=== PATIENT | female | born 1990 | race Caucasian/White ===

== ENCOUNTER 2017-07-10 08:56 | Emergency (ER) | payer OTHER ==
[~2017-07-10] VITALS: Ht 167.6 cm; Wt 110.1 kg
[~2017-07-10 08:56] MED LIST: HYDR4TAB48 PO; ONDA4TAB13 SL; none per pt
[2017-07-10] MEDS ORDERED: MORPHINE SULFATE 4 MG/ML, 1ML ONE ×2 (09:25→10:14)
[2017-07-10] MEDS ORDERED: ONDANSETRON ODT 4 MG ONE (09:25)
[2017-07-10] MEDS ORDERED: ONDANSETRON ODT 4 MG PO ONE (09:30)
[2017-07-10] MEDS ORDERED: SODIUM CHLORIDE FLUSH 10ML SYR IVF ONE (09:30)
[2017-07-10] MEDS: MORPHINE SULFATE 4 MG/ML, 1ML IVPush PRN ×2 (09:40→10:18)
[2017-07-10 10:10] LABS: CULTURE INDICATED? YES; MICROSCOPIC INDICATED
[2017-07-10 10:12] LABS: BASOPHILS # (AUTO) 0.05 x10^3/uL (0-0.1); BASOPHILS % (AUTO) 1 % (0-1); EOSINOPHILS # (AUTO) 0.06 x10^3/uL (0-0.4); EOSINOPHILS % (AUTO) 1 % (1-7); LYMPHOCYTES # (AUTO) 2.34 x10^3/uL (1-3.4); LYMPHOCYTES % (AUTO) 31 % (22-44); MD NO; MEAN CORPUSCULAR HEMOGLOBIN 29.6 pg (27.0-34.8); MEAN CORPUSCULAR HGB CONC 33.5 g/dL (32.4-35.8); MEAN CORPUSCULAR VOLUME 88.3 fL (80-100); MEAN PLATELET VOLUME 8.1 fL (7.4-10.4); MONOCYTES # (AUTO) 0.43 x10^3/uL (0.2-0.8); MONOCYTES % (AUTO) 6 % (2-9); NEUTROPHILS # (AUTO) 4.69 x10^3/uL (1.8-6.8); NEUTROPHILS % (AUTO) 62 % (42-75); PLATELET COUNT 434 x10^3/uL (130-400); RED BLOOD COUNT 4.54 x10^6/uL (3.82-5.3); RED CELL DISTRIBUTION WIDTH 12.6 % (9.6-15.2)
[2017-07-10 10:22] LABS: INTERNATIONAL NORMALIZED RATIO 0.97 (0.93-1.1)
[2017-07-10 10:26] LABS: ALBUMIN 3.8 g/dL (3.4-5.0); ANION GAP 6 mmol/L (5-15); CALCIUM 8.7 mg/dL (8.5-10.1); CHLORIDE 108 mmol/L (98-107)
[2017-07-10 10:31] LABS: ALANINE AMINOTRANSFERASE 21 U/L (12-78); ALKALINE PHOSPHATASE 88 U/L (45-117); BILIRUBIN,TOTAL 1.4 mg/dL (0.2-1.0); CREATININE 0.63 mg/dL (0.55-1.02); TOTAL PROTEIN 7.8 g/dL (6.4-8.2)
[2017-07-10] MEDS ORDERED: HYDROcodone/APAP 5/325 TABLET PO ONE (11:30)
[2017-07-10] MEDS ORDERED: OMNIPAQUE 350 MG/ML, 100ML BOTTLE ONE (11:30)
[2017-07-10] MEDS ORDERED: HYDROcodone/APAP 5/325 TABLET ONE (11:45)
[2017-07-10 11:52] VITALS: BP 114/82
== END 2017-07-10 12:01 | disposition home or self-care (01) ==
LOC: ED 11:07
DX: S20.211A Contusion of right front wall of thorax, initial encounter (principal); W21.01XA Struck by football, initial encounter; Y93.61 Activity, american tackle football; Y92.321 Football field as the place of occurrence of the external cause; Y99.8 Other external cause status
CPT/HCPCS: 36415; 71260; 74177; 80053; 81001; 85025; 85610; 85730; 87086; 96374; 96376; 99285; Q0162; Q9967

== ENCOUNTER 2017-10-09 02:47 | Emergency (ER) | payer SELFPAY ==
[~2017-10-09] VITALS: Ht 167.6 cm; Wt 109.8 kg
[2017-10-09 02:49] VITALS: BP 138/88
== END 2017-10-09 03:37 | disposition home or self-care (01) ==
LOC: ED 03:30
DX: R07.89 Other chest pain (principal); W51.XXXA Accidental striking against or bumped into by another person, initial encounter; Y93.61 Activity, american tackle football; Y99.8 Other external cause status; Y92.328 Other athletic field as the place of occurrence of the external cause
CPT/HCPCS: 99284

== ENCOUNTER 2019-12-12 19:24 | Emergency (ER) | payer OTHER ==
[~2019-12-12] VITALS: Ht 167.6 cm; Wt 117.7 kg
[2019-12-12 19:31] VITALS: BP 154/91
[2019-12-12] MEDS ORDERED: IBUPROFEN 800 MG TABLET PO STA (19:48)
[2019-12-12] MEDS ORDERED: IBUPROFEN 800 MG TABLET ONE (20:18)
--- NOTE | 2019-12-12 20:20 | NUR ---
ICU SPECIALIST PER MAR.
--- NOTE | 2019-12-12 20:23 | NUR ---
ALL RESULTS ARE BACK AT THIS TIME. CHART UP FOR RECHECK.
[2019-12-12] MEDS ORDERED: IBUPROFEN 800 MG TABLET PO ONE (20:30)
[2019-12-12] MEDS ORDERED: OXYcodone/APAP 5/325MG TABLET PO ONE (21:00)
[2019-12-12] MEDS ORDERED: OXYcodone/APAP 5/325MG TABLET ONE ×2 (21:00→21:02)
--- NOTE | 2019-12-12 21:02 | NUR ---
MEDS ADMIN PER MAY.
== END 2019-12-12 21:29 | disposition home or self-care (01) ==
LOC: ED 19:44
DX: S62.336A Displaced fracture of neck of fifth metacarpal bone, right hand, initial encounter for closed fracture (principal); X58.XXXA Exposure to other specified factors, initial encounter; Y93.89 Activity, other specified; Y92.098 Other place in other non-institutional residence as the place of occurrence of the external cause; Y99.8 Other external cause status
CPT/HCPCS: 29125; 99284

== ENCOUNTER 2019-12-13 17:35 | Emergency (ER) | payer OTHER ==
[~2019-12-13] VITALS: Ht 167.6 cm; Wt 118.0 kg
[2019-12-13 20:14] VITALS: BP 146/94
[2019-12-13] MEDS ORDERED: OXYcodone/APAP 10/325MG TABLET ONE (21:15)
[2019-12-13] MEDS ORDERED: OXYcodone/APAP 10/325MG TABLET PO ONE (21:30)
== END 2019-12-13 21:59 | disposition home or self-care (01) ==
LOC: ED 21:00
DX: S62.336A Displaced fracture of neck of fifth metacarpal bone, right hand, initial encounter for closed fracture (principal); X58.XXXA Exposure to other specified factors, initial encounter; Y93.89 Activity, other specified; Y92.89 Other specified places as the place of occurrence of the external cause; Y99.8 Other external cause status
CPT/HCPCS: 29125; 99283